=== PATIENT | male | born 1960 | race Caucasian/White ===

== ENCOUNTER 2017-02-26 08:20 | Emergency (ER) | payer SELFPAY ==
[~2017-02-26] VITALS: Ht 175.3 cm; Wt 117.9 kg
[~2017-02-26 08:20] MED LIST: ALBU0.63 NEB; DICL75TA PO; FAMO40TA4 PO; GLIM2TAB2 PO; LIRA0.6P2 SQ; LISI1TAB5 PO; METF500T4 PO; PROAIR HFA8.5 GM INH; bp medication; victoza
--- NOTE | 2017-02-26 08:33 | PHYS DOC ---
Past Medical History Past Medical History: Diabetes-Type II, GERD, Hypertension Past Surgical History: Other Additional Past Surgical Histo: knee Alcohol Use: Occasionally Drug Use: None Adult General Chief Complaint Chief Complaint: DENTAL PROBLEM HPI HPI Patient is a 56 year old male presents to the ED complaining of dental pain x 3 days. History of dental problems. States he has not made it to the dentist because he doesn't have the money yet. Describes the pain as sharp. Rates the pain as 8/10. Pain with chewing. Denies difficulty swallowing, fever, headache, nausea/vomiting, chest pain or shortness of breath. Review of Systems Review of Systems Constitutional: Denies fever or chills [] Eyes: Denies change in visual acuity, redness, or eye pain [] HENT: Denies nasal congestion or sore throat [] Respiratory: Denies cough or shortness of breath [] Cardiovascular: No additional information not addressed in HPI [] GI: Denies abdominal pain, nausea, vomiting, bloody stools or diarrhea [] : Denies dysuria or hematuria [] Musculoskeletal: Denies back pain or joint pain [] Integument: Denies rash or skin lesions [] Neurologic: Denies headache, focal weakness or sensory changes [] Endocrine: Denies polyuria or polydipsia [] All other systems were reviewed and found to be within normal limits, except as documented in this note. Current Medications Current Medications Current Medications Medications (Trade) Dose Ordered Sig/Rosa Start Time Stop Time Status Last Admin Dose Admin Acetaminophen/ Hydrocodone Bitart (Lortab 5/325) 1 tab 1X ONCE 02/26/17 09:00 02/26/17 09:00 DC Amoxicillin (Amoxil) 500 mg 1X ONCE 02/26/17 09:00 02/26/17 09:01 02/26/17 08:45 500 MG Allergies Allergies Allergies Coded Allergies Type Severity Reaction Last Updated Verified No Known Drug Allergies 01/19/14 No Physical Exam Physical Exam Constitutional: Well developed, well nourished, no acute distress, non-toxic appearance. [] HENT: Normocephalic, atraumatic, bilateral external ears normal, oropharynx moist, no oral exudates, nose normal. RIGHT UPPER INCISOR DENTAL CARIES. NO ABSCESS OR FLUCTUANCE. POOR DENTITION THROUGHOUT. MULTIPLE MISSING TEETH. [] Eyes: PERRLA, EOMI, conjunctiva normal, no discharge. [] Neck: Normal range of motion, no tenderness, supple, no stridor. [] Cardiovascular:Heart rate regular rhythm, no murmur [] Lungs & Thorax: Bilateral breath sounds clear to auscultation [] Abdomen: Bowel sounds normal, soft, no tenderness, no masses, no pulsatile masses. [] Skin: Warm, dry, no erythema, no rash. [] Back: No tenderness, no CVA tenderness. [] Extremities: No tenderness, no cyanosis, no clubbing, ROM intact, no edema. [] Neurologic: Alert and oriented X 3, normal motor function, normal sensory function, no focal deficits noted. [] Psychologic: Affect normal, judgement normal, mood normal. [] Current Patient Data Vital Signs Vital Signs Date Time Temp Pulse Resp B/P (MAP) Pulse Ox O2 Delivery O2 Flow Rate FiO2 02/26/17 08:35 98.7 90 16 96 Room Air 98.7 EKG EKG [] Radiology/Procedures Radiology/Procedures [] Course & Med Decision Making Course & Med Decision Making Pertinent Labs and Imaging studies reviewed. (See chart for details) []Will prescribe amoxicillin and analgesics outpatient. Patient tolerating PO. No abscess. Discussed follow-up with dentist early next week. Provided community resource list. Discussed community dental clinics. Discussed risks if patient does not follow-up. Discussed reasons to return to the ED. Patient understands and agrees with plan. Dragon Disclaimer Dragon Disclaimer This electronic medical record was generated, in whole or in part, using a voice recognition dictation system. Departure Departure Impression: Primary Impression: Pain, dental Disposition: 01 HOME, SELF-CARE Condition: STABLE Referrals: GABRIELLE MUNGUIA MD (PCP) SUJEY PARRA DDS Patient Instructions: Dental Pain Scripts Hydrocodone/Apap 5-325 (NORCO 5-325 TABLET) 1 Each Tablet 1 TAB PO TID, #8 TAB Prov: JOSE MADDOX 02/26/17 Amoxicillin (AMOXICILLIN) 500 Mg Capsule 1 CAP PO TID, #30 CAP Prov: JOSE MADDOX 02/26/17 JOSE MADDOX Feb 26, 2017 08:33
[2017-02-26 08:35] VITALS: BP 154/83
[2017-02-26] MEDS ORDERED: AMOX500C PO (08:35)
[2017-02-26] MEDS ORDERED: HYDR-971 PO (08:35)
[2017-02-26] MEDS ORDERED: AMOXICILLIN 250 MG CAPSULE. PO ONE (09:00)
[2017-02-26] MEDS ORDERED: HYDROcodone/APAP 5/325MG 1 TAB TABLET PO ONE (09:00)
== END 2017-02-26 08:47 | disposition home or self-care (01) ==
LOC: ER 08:20
DX: K02.9 Dental caries, unspecified (principal); E11.9 Type 2 diabetes mellitus without complications; I10 Essential (primary) hypertension; K21.9 Gastro-esophageal reflux disease without esophagitis
CPT/HCPCS: 99283

== ENCOUNTER 2018-06-22 09:49 | Emergency (ER) | payer SELFPAY ==
[~2018-06-22] VITALS: Ht 175.3 cm; Wt 122.5 kg
[~2018-06-22 09:49] MED LIST changes: +ALBU2.5V8 INH; +AMOX500C PO; +HYDR-3164 PO; +METF500T16 PO; -METF500T4 PO; -PROAIR HFA8.5 GM INH
[2018-06-22] MEDS ORDERED: IV NORMAL SALINE 1000ML BAG 1,000 ML IV ONE (10:15)
[2018-06-22] MEDS ORDERED: MORPHINE SULFATE 2 MG/ML VIAL. IV ONE (10:15)
[2018-06-22] MEDS ORDERED: methylPREDNISolone SOD SUCC PF 125 MG/2 ML VIAL. IV ONE (10:15)
[2018-06-22] MEDS ORDERED: ONDANSETRON PF 4 MG/2 ML VIAL. IV ONE (10:15)
[2018-06-22] MEDS ORDERED: IPRATRPIUM/ALBUTEROL 0.5/2.5MG 3 ML NEBU. NEB ONE (10:15)
[2018-06-22 10:30] LABS: BASO % 0 % (0-3); EOS # 0.1 x10^3/uL (0.0-0.7); EOS % 1 % (0-3); HEMOGLOBIN 16.6 g/dL (13.0-17.5); LYMPH # 0.6 x10^3/uL (1.0-4.8); LYMPH % 6 % (24-48); MEAN CORPUSCULAR HEMOGLOBIN 30 pg (25-35); MEAN CORPUSCULAR HGB CONC 33 g/dL (31-37); MEAN CORPUSCULAR VOLUME 89 fL (79-100); MONO # 0.5 x10^3/uL (0.0-1.1); MONO % 5 % (0-9); NEUT # 8.4 x10^3uL (1.8-7.7); NEUT % 88 % (31-73); PLATELET COUNT 301 x10^3/uL (140-400); RED BLOOD COUNT 5.64 x10^6/uL (4.30-5.70); RED CELL DISTRIBUTION WIDTH 13.6 % (11.5-14.5); WHITE BLOOD COUNT 9.5 x10^3/uL (4.0-11.0)
--- NOTE | 2018-06-22 10:30 | EKG ---
[facility] [address] [place] [address] Test Date: 2018-06-22 Test Time: 10:03:30 Pat Name: WYATT BAY Department: Room: Gender: Male Regulatory Compliance Coordinator: : 1960 Requested By: SMILEY RUSSELL Order Number: [id number] Reading MD: Scottie Crowder MD Measurements Intervals [place] Rate: 108 P: 12 IL: 138 QRS: -48 QRSD: 88 T: 81 QT: 312 QTc: 422 Interpretive Statements SINUS TACHYCARDIA ABNORMAL LEFT AXIS DEVIATION LEFT ANTERIOR FASCICULAR BLOCK NON-SPECIFIC ST/T CHANGES Electronically Signed On 07-03-2018 21:35:19 CDT by Scottie Crowder MD
[2018-06-22 10:39] LABS: CREATININE 1.2 mg/dL (0.7-1.3); GFR 62.4; POTASSIUM 5.1 mmol/L (3.5-5.1)
--- NOTE | 2018-06-22 10:43 | PHYS DOC ---
Past Medical History Past Medical History: Asthma, Diabetes-Type II, GERD, Hypertension, Pneumonia Past Surgical History: Other Additional Past Surgical Histo: knee Alcohol Use: Rarely Drug Use: Marijuana Adult General Chief Complaint Chief Complaint: SHORTNESS OF BREATH HPI HPI Patient is a 58 year old male with history of diabetes type 2, asthma, hypertension, who presents to the ED today with multiple complaints. Patient states 2 weeks ago he fell down and landed on his back. He is complaining of 15 out of 10 throbbing mid back pain nonradiating in nature for 2 weeks. Patient states the pain is worse on movement. Patient is also complaining of shortness of breath for 1-1/2 weeks. He is a smoker. He states he cannot afford his inhaler. He states he usually uses the 's inhaler but she is admitted in ICU. He is also complaining of diarrhea for 1 week. Patient denies any fever. Denies any nausea vomiting. PCP Dr. Munguia Review of Systems Review of Systems Constitutional: Denies fever or chills [] Eyes: Denies change in visual acuity, redness, or eye pain [] HENT: Denies nasal congestion or sore throat [] Respiratory: Reports cough and shortness of breath Cardiovascular: No additional information not addressed in HPI [] GI: Reports diarrhea. Denies abdominal pain, nausea, vomiting, bloody stools : Denies dysuria or hematuria [] Musculoskeletal: Reports mid back pain, denies joint pain [] Integument: Denies rash or skin lesions [] Neurologic: Denies headache, focal weakness or sensory changes [] All other systems were reviewed and found to be within normal limits, except as documented in this note. Current Medications Current Medications Current Medications Medications (Trade) Dose Ordered Sig/Rosa Start Time Stop Time Status Last Admin Dose Admin Albuterol/ Ipratropium (Duoneb) 3 ml 1X ONCE 06/22/18 10:15 06/22/18 10:19 DC 06/22/18 10:44 3 ML Info (CONTRAST GIVEN -- Rx MONITORING) 1 each PRN DAILY PRN 06/22/18 11:30 06/22/18 14:38 DC Insulin Human Regular (HumuLIN R VIAL) 8 unit 1X ONCE 06/22/18 13:00 06/22/18 13:01 DC 06/22/18 12:47 8 UNIT Iohexol (Omnipaque 300 Mg/ml) 75 ml 1X ONCE 06/22/18 11:15 06/22/18 11:18 DC 06/22/18 11:27 75 ML Methylprednisolone Sodium Succinate (SOLU-Medrol 125MG VIAL) 125 mg 1X ONCE 06/22/18 10:15 06/22/18 10:19 DC 06/22/18 10:50 125 MG Morphine Sulfate (Morphine Sulfate) 2 mg 1X ONCE 06/22/18 10:15 06/22/18 10:19 DC 06/22/18 10:50 2 MG Ondansetron HCl (Zofran) 4 mg 1X ONCE 06/22/18 10:15 06/22/18 10:19 DC 06/22/18 10:50 4 MG Sodium Chloride 1,000 ml @ 1,000 mls/hr 1X ONCE 06/22/18 10:15 06/22/18 11:14 DC 06/22/18 10:50 1,000 MLS/HR Allergies Allergies Allergies Coded Allergies Type Severity Reaction Last Updated Verified No Known Drug Allergies 01/19/14 No Physical Exam Physical Exam Constitutional: Well developed, well nourished, no acute distress, non-toxic appearance. [] HENT: Normocephalic, atraumatic, bilateral external ears normal, oropharynx moist, no oral exudates, nose normal. [] Eyes: PERRLA, EOMI, conjunctiva normal, no discharge. [] Neck: Normal range of motion, no tenderness, supple, no stridor. [] Cardiovascular:Heart rate regular rhythm, no murmur [] Lungs & Thorax: Patient appears short of air mostly on exertion. Abdomen: Bowel sounds normal, soft, no tenderness, no masses, no pulsatile masses. [] Skin: Warm, dry, no erythema, no rash. [] Back: Diffuse paraspinal muscle tenderness with thoracic spine, no midline thoracic spine tenderness, no CVA tenderness. [] Extremities: No tenderness, no cyanosis, no clubbing, ROM intact, no edema. [] Neurologic: Alert and oriented X 3, normal motor function, normal sensory function, no focal deficits noted. Cranial nerves II through XII intact Psychologic: Affect normal, judgement normal, mood normal. [] Current Patient Data Vital Signs Vital Signs Date Time Temp Pulse Resp B/P (MAP) Pulse Ox O2 Delivery O2 Flow Rate FiO2 3/8/19 13:17 106 117/63 (81) 95 Room Air 06/22/18 12:47 24 06/22/18 10:17 97.9 97.9 Lab Values Laboratory Tests Test 06/22/18 09:59 06/22/18 10:07 06/22/18 13:20 Influenza Type A Antigen Negative (NEGATIVE) Influenza Type B Antigen Negative (NEGATIVE) White Blood Count 9.5 x10^3/uL (4.0-11.0) Red Blood Count 5.64 x10^6/uL (4.30-5.70) Hemoglobin 16.6 g/dL (13.0-17.5) Hematocrit 50.0 % (39.0-53.0) Mean Corpuscular Volume 89 fL (79-100) Mean Corpuscular Hemoglobin 30 pg (25-35) Mean Corpuscular Hemoglobin Concent 33 g/dL (31-37) Red Cell Distribution Width 13.6 % (11.5-14.5) Platelet Count 301 x10^3/uL (140-400) Neutrophils (%) (Auto) 88 % (31-73) H Lymphocytes (%) (Auto) 6 % (24-48) L Monocytes (%) (Auto) 5 % (0-9) Eosinophils (%) (Auto) 1 % (0-3) Basophils (%) (Auto) 0 % (0-3) Neutrophils # (Auto) 8.4 x10^3uL (1.8-7.7) H Lymphocytes # (Auto) 0.6 x10^3/uL (1.0-4.8) L Monocytes # (Auto) 0.5 x10^3/uL (0.0-1.1) Eosinophils # (Auto) 0.1 x10^3/uL (0.0-0.7) Basophils # (Auto) 0.0 x10^3/uL (0.0-0.2) Segmented Neutrophils % 91 % (35-66) H Lymphocytes % 7 % (24-48) L Monocytes % 2 % (0-10) Platelet Estimate Adequate (ADEQUATE) Sodium Level 132 mmol/L (136-145) L Potassium Level 5.1 mmol/L (3.5-5.1) Chloride Level 97 mmol/L (98-107) L Carbon Dioxide Level 20 mmol/L (21-32) L Anion Gap 15 (6-14) H Blood Urea Nitrogen 17 mg/dL (8-26) Creatinine 1.2 mg/dL (0.7-1.3) Estimated GFR (Cockcroft-Gault) 62.4 BUN/Creatinine Ratio 14 (6-20) Glucose Level 349 mg/dL (70-99) H Calcium Level 9.0 mg/dL (8.5-10.1) Magnesium Level 1.7 mg/dL (1.8-2.4) L Total Bilirubin 0.7 mg/dL (0.2-1.0) Aspartate Amino Transferase (AST) 19 U/L (15-37) Alanine Aminotransferase (ALT) 38 U/L (16-63) Alkaline Phosphatase 75 U/L (46-116) Creatine Kinase 41 U/L (39-308) Creatine Kinase MB (Mass) 0.6 ng/mL (0.0-3.6) Creatine Kinase MB Relative Index % (0-4) Troponin I Quantitative < 0.017 ng/mL (0.000-0.055) KU-Agg-X-Type Natriuretic Peptide 20 pg/mL (0-124) Total Protein 7.2 g/dL (6.4-8.2) Albumin 3.8 g/dL (3.4-5.0) Albumin/Globulin Ratio 1.1 (1.0-1.7) Thyroid Stimulating Hormone (TSH) 1.570 uIU/mL (0.358-3.74) Glucose (Fingerstick) 283 mg/dL (70-99) H Laboratory Tests 06/22/18 10:07 Laboratory Tests 06/22/18 10:07 EKG EKG EKG interpreted by Dr. Ding sinus tachycardia, HR 108 no STEMI[] Radiology/Procedures Radiology/Procedures []PROCEDURE: CT ABD PELV W/ IV CONTRST ONLY PQRS Compliance statement: One or more of the following individualized dose reduction techniques were utilized for this examination: 1. Automated exposure control. 2. Adjustment of the mA and/or kV according to patient size. 3. Use of iterative reconstruction technique. Indication:DIARRHEA INJ 75 ML OMNI 300 NO PREV TECHNIQUE: CT abdomen and pelvis with IV contrast with multiplanar reformats. COMPARISON: None FINDINGS: Heart is normal in size. No pericardial or pleural effusion. 2 mm nodule in the right lower lobe adjacent to the right major fissure. Couple of 2 mm subpleural left lower lobe nodules. Liver, spleen, gallbladder, pancreas, adrenals within normal limits. Bilateral low attenuating lesions are seen in the kidneys, the largest on the right side measuring 3 cm and on the left side measuring 2.5 cm. No nephrolithiasis or hydronephrosis. No enlarged retroperitoneal or pelvic adenopathy. No free pelvic fluid or ascites. Mild diffuse atherosclerotic disease of the infrarenal aorta. No bowel obstruction. Normal appendix. The prostate and seminal vesicles show no large mass. Urinary bladder is within normal limits. No pneumoperitoneum. No suspicious bony lesion. IMPRESSION: 1. No acute findings. 2. Bilateral renal lesions most likely simple and minimally complicated cysts. For definite confirmation MRI of the abdomen with IV contrast recommended. Alternatively ultrasound of the kidneys can be obtained. Electronically signed by: Miguel Foreman DO (06/22/2018 11:55 AM) [id number] DICTATED and SIGNED BY: MIGUEL FOREMAN DO DATE: 06/22/18 1155 Course & Med Decision Making Course & Med Decision Making Pertinent Labs and Imaging studies reviewed. (See chart for details) This is a 58-year-old male patient presenting to the ED today with multiple complaints including mid back pain status post falling 2 weeks ago, shortness of breath for 1-1/2 weeks, diarrhea for week. Off note patient's is admitted in the hospital in ICU. CBC with a normal WBC noted for a left shift. CMP with glucose of 349, anion gap 15, sodium 132. Patient was given IV fluids, given insulin 8 units. Glucose 283. Patient has not provided us with the urine. CT of the abdomen and pelvic is negative for any acute findings, noted for renal cysts X-ray of the chest, thoracic spine, negative for any acute findings. Patient is given a DuoNeb treatment. He states his shortness of breath has improved. He states he still feels his back is still hurting despite the morphine Informed patient if his pain is not well controlled i will contact Dr. Munguia and we can admit him to the hospital. Patient states his son is outside he wants to leave right now. Dragon Disclaimer Dragon Disclaimer This electronic medical record was generated, in whole or in part, using a voice recognition dictation system. Departure Departure Impression: Primary Impression: Fall from standing Additional Impressions: Diarrhea Renal cyst Contusion of thoracic wall Acute bronchitis Smoking addiction Hyperglycemia Disposition: 01 HOME, SELF-CARE Condition: STABLE Referrals: GABRIELLE MUNGUIA MD (PCP) follow up next week Patient Instructions: Acute Bronchitis, Back Pain, Adult, Fall Prevention and Home Safety, Hyperglycemia Additional Instructions: You were evaluated in the emergency room, your x-rays of thoracic spine were negative for any acute findings, chest x-ray was also negative for any acute findings, CT of the abdomen and pelvic was negative for any acute findings, you have renal lesions that need to be followed up by Dr. Munguia next week. Use the medications prescribed as ordered. Scripts Hydrocodone/Apap 5-325 (NORCO 5-325 TABLET) 1 Each Tablet 1 TAB PO Q4-6HRS, #10 TAB Prov: MUTUNGASMILEY SUPPLIER DEVELOPMENT MANAGER 06/22/18 Cyclobenzaprine Hcl (CYCLOBENZAPRINE HCL) 10 Mg Tablet 1 TAB PO TID, #30 TAB Prov: MUTUNGASMILEY SUPPLIER DEVELOPMENT MANAGER 06/22/18 Albuterol Sulfate (ALBUTEROL SULFATE NEB SOLN) 1.25 Mg/3 Ml Vial.neb 1 VIAL NEB Q6HRS, #150 ML Prov: MUTUNGA,SMILEY SUPPLIER DEVELOPMENT MANAGER 06/22/18 Problem Qualifiers Primary Impression: Fall from standing Encounter type: initial encounter Qualified Codes: W19.XXXA - Unspecified fall, initial encounter Additional Impressions: Diarrhea Diarrhea type: unspecified type Qualified Codes: R19.7 - Diarrhea, unspecified Contusion of thoracic wall Encounter type: initial encounter Contusion of thoracic wall detail: back wall of thorax Laterality: right Qualified Codes: S20.221A - Contusion of right back wall of thorax, initial encounter Acute bronchitis Bronchitis organism: unspecified organism Qualified Codes: J20.9 - Acute bronchitis, unspecified MUTUNGASMILEY SUPPLIER DEVELOPMENT MANAGER Jun 22, 2018 10:43
[2018-06-22 10:45] LABS: ALBUMIN 3.8 g/dL (3.4-5.0); ALBUMIN/GLOBULIN RATIO 1.1 (1.0-1.7); MAGNESIUM 1.7 mg/dL (1.8-2.4); TOTAL BILIRUBIN 0.7 mg/dL (0.2-1.0); TOTAL PROTEIN 7.2 g/dL (6.4-8.2)
[2018-06-22 10:52] LABS: CREATINE KINASE 41 U/L (39-308)
[2018-06-22 11:05] LABS: INFLUENZA A PATIENT NEGATIVE (NEGATIVE); INFLUENZA B PATIENT NEGATIVE (NEGATIVE)
[2018-06-22] MEDS ORDERED: IOHEXOL 300 MG/ML 100ML VIAL. IV ONE (11:15)
--- NOTE | 2018-06-22 11:18 | RAD ---
AP chest, 06/22/2018: HISTORY: Shortness of breath The heart size and pulmonary vascularity are normal. No pulmonary infiltrate is seen. There is no evidence of pleural fluid. IMPRESSION: No acute cardiopulmonary abnormality is detected. Thoracic spine, 3 views, 06/22/2018: HISTORY: Back pain after a fall There is moderate scattered marginal spurs in the mid and lower cervical spine. No fracture or dislocation is evident. The paraspinous soft tissues are unremarkable. IMPRESSION: 1. Hypertrophic degenerative change. 2. No acute bony abnormality is detected. Electronically signed by: Rakesh Singleton MD (06/22/2018 11:14 AM) [facility]
[2018-06-22] MEDS ORDERED: CONTRAST GIVEN. MC PRN (11:30)
--- NOTE | 2018-06-22 11:58 | RAD ---
PQRS Compliance statement: One or more of the following individualized dose reduction techniques were utilized for this examination: 1. Automated exposure control. 2. Adjustment of the mA and/or kV according to patient size. 3. Use of iterative reconstruction technique. Indication:DIARRHEA INJ 75 ML OMNI 300 NO PREV TECHNIQUE: CT abdomen and pelvis with IV contrast with multiplanar reformats. COMPARISON: None FINDINGS: Heart is normal in size. No pericardial or pleural effusion. 2 mm nodule in the right lower lobe adjacent to the right major fissure. Couple of 2 mm subpleural left lower lobe nodules. Liver, spleen, gallbladder, pancreas, adrenals within normal limits. Bilateral low attenuating lesions are seen in the kidneys, the largest on the right side measuring 3 cm and on the left side measuring 2.5 cm. No nephrolithiasis or hydronephrosis. No enlarged retroperitoneal or pelvic adenopathy. No free pelvic fluid or ascites. Mild diffuse atherosclerotic disease of the infrarenal aorta. No bowel obstruction. Normal appendix. The prostate and seminal vesicles show no large mass. Urinary bladder is within normal limits. No pneumoperitoneum. No suspicious bony lesion. IMPRESSION: 1. No acute findings. 2. Bilateral renal lesions most likely simple and minimally complicated cysts. For definite confirmation MRI of the abdomen with IV contrast recommended. Alternatively ultrasound of the kidneys can be obtained. Electronically signed by: Miguel Foreman DO (06/22/2018 11:55 AM) [id number]
[2018-06-22 12:00] LABS: % LYMPHS 7 % (24-48); % MONOS 2 % (0-10); % SEGS 91 % (35-66)
[2018-06-22] MEDS ORDERED: INSULIN REGULAR 100 UNIT/ML 3ML VIAL. IV ONE (13:00)
[2018-06-22 13:17] VITALS: BP 117/63
[2018-06-22] MEDS ORDERED: CYCL10TA2 PO (13:53)
[2018-06-22] MEDS ORDERED: HYDR-3164 PO (13:53)
[2018-06-22] MEDS ORDERED: ALBU1.25 NEB (13:53)
[2018-06-22 14:29] LABS: PLT ESTIMATE ADEQUATE (ADEQUATE)
== END 2018-06-22 14:38 | disposition home or self-care (01) ==
LOC: ER 09:49
DX: S20.221A Contusion of right back wall of thorax, initial encounter (principal); R19.7 Diarrhea, unspecified; N28.1 Cyst of kidney, acquired; J20.9 Acute bronchitis, unspecified; F17.200 Nicotine dependence, unspecified, uncomplicated; E11.65 Type 2 diabetes mellitus with hyperglycemia; K21.9 Gastro-esophageal reflux disease without esophagitis; I10 Essential (primary) hypertension; W19.XXXA Unspecified fall, initial encounter; Y93.89 Activity, other specified; Y92.89 Other specified places as the place of occurrence of the external cause; Y99.8 Other external cause status
CPT/HCPCS: 36415; 71045; 72072; 74177; 80053; 82553; 82962; 83735; 83880; 84443; 84484; 85007; 85025; 87040; 87804; 93005; 94640; 96361; 96374; 96375; 99284; J1815; J2270; J2405; J2930; J7030; J7620; Q9967